=== PATIENT | female | born 1970 | race Caucasian/White ===

== ENCOUNTER 2020-08-16 21:58 | Emergency (ER) | payer SELFPAY ==
--- NOTE | 2020-08-16 22:50 | ER Document Report ---
ED Medical Screen (RME) - General Chief Complaint: Toothache Stated Complaint: TOOTH PAIN AND FACE PAIN Time Seen by Provider: 08/16/20 22:45 Primary Care Provider: TRISTAN CONNER FNP-C [Primary Care Provider] - Follow up as needed Mode of Arrival: Ambulatory Information source: Patient Notes: 50-year-old female presented ED for dental pain to the right posterior lower gum and tooth. She states she had minimal pain on Monday and then it progressed throughout the day became much worse by Monday night Monday morning she started with the swelling to the face and gums. She now has pain to both ears and the left side of her face. She states she has been taking everything the medicine that she has nothing has helped and so she is afraid she is going to overdose on her medications. She does have a large abscess in front of the gums. We will be seen by another provider to complete this care. TRAVEL OUTSIDE OF THE [place] IN LAST 30 DAYS: No - Related Data Allergies/Adverse Reactions: No Known Allergies Allergy (Unverified 01/26/15 11:05) Past Medical History - Past Medical History Cardiac Medical History: Denies: Hx Coronary Artery Disease, Hx Heart Attack, Hx Hypertension Pulmonary Medical History: Denies: Hx Asthma, Hx Bronchitis, Hx COPD, Hx Pneumonia Neurological Medical History: Denies: Hx Cerebrovascular Accident, Hx Seizures Musculoskeltal Medical History: Denies Hx Arthritis - Immunizations Hx Diphtheria, Pertussis, Tetanus Vaccination: No Physical Exam - Vital signs Vitals: Temp Pulse Resp BP Pulse Ox 98.2 F 75 17 145/75 H 97 08/16/20 22:05 08/16/20 22:05 08/16/20 22:05 08/16/20 22:05 08/16/20 22:05 Course - Vital Signs Vital signs: Temp Pulse Resp BP Pulse Ox 98.2 F 75 17 145/75 H 97 08/16/20 22:05 08/16/20 22:05 08/16/20 22:05 08/16/20 22:05 08/16/20 22:05 Doctor's Discharge - Discharge Referrals: TRISTAN CONNER FNP-C [Primary Care Provider] - Follow up as needed
[2020-08-16] MEDS ORDERED: LIDOCAINE 1%/EPINEPHRINE INJ 20 ML VIAL INJ ONE (22:53)
[2020-08-16] MEDS ORDERED: PENICILLIN V POTASSIUM 500 MG TABLET PO ONE (22:53)
[2020-08-16] MEDS ORDERED: HYDROCODONE/ACETAMINOPHEN 5-325 MG (6 TAB/ER DISP) PO PRN (22:54)
[2020-08-16] MEDS ORDERED: BUPIVACAINE HCL 0.75% INJ/PF (7.5 MG/1 ML) 10 ML SDV INJ ONE (22:55)
--- NOTE | 2020-08-16 23:22 | ER Document Report ---
ED General - General Chief Complaint: Toothache Stated Complaint: TOOTH PAIN AND FACE PAIN Time Seen by Provider: 08/16/20 22:45 Primary Care Provider: TRISTAN CONNER FNP-C [Primary Care Provider] - Follow up as needed Mode of Arrival: Ambulatory Notes: Patient is a 50-year-old female with no reported past medical history presents to the emergency department with a chief complaint of dental pain and gum swelling and facial swelling. She states the dental pain began on Monday night and has gradually progressed. States she now has a swollen tender area to the lateral gumline around the same area of the tender tooth. States that she plans to see the dentist tomorrow but can no longer tolerate the discomfort given the new onset swelling that began today outside the jawline. States the pain radiates to both ears and to the face. Worse with chewing or oral intake. Denies any difficulty with tongue or w throat swelling or inability to swallow secretions or trouble breathing. TRAVEL OUTSIDE OF THE [place] IN LAST 30 DAYS: No - Related Data Allergies/Adverse Reactions: No Known Allergies Allergy (Unverified 01/26/15 11:05) Past Medical History - General Information source: Patient - Social History Smoking Status: Unknown if Ever Smoked Family History: Reviewed & Not Pertinent - Past Medical History Cardiac Medical History: Denies: Hx Coronary Artery Disease, Hx Heart Attack, Hx Hypertension Pulmonary Medical History: Denies: Hx Asthma, Hx Bronchitis, Hx COPD, Hx Pneumonia Neurological Medical History: Denies: Hx Cerebrovascular Accident, Hx Seizures Musculoskeletal Medical History: Denies Hx Arthritis - Immunizations Hx Diphtheria, Pertussis, Tetanus Vaccination: No Review of Systems - Review of Systems Constitutional: denies: Fever EENT: denies: Nose congestion Cardiovascular: denies: Orthopnea Respiratory: denies: Sputum Gastrointestinal: denies: Vomiting, Poor fluid intake Genitourinary: denies: Pain Female Genitourinary: denies: Post menopausal Musculoskeletal: denies: Muscle pain Skin: denies: Lesions Hematologic/Lymphatic: denies: Easy bleeding Neurological/Psychological: denies: Gait changes Physical Exam - Vital signs Vitals: Temp Pulse Resp BP Pulse Ox 98.2 F 75 17 145/75 H 97 08/16/20 22:05 08/16/20 22:05 08/16/20 22:05 08/16/20 22:05 08/16/20 22:05 - General General appearance: Appears well, Alert In distress: None - HEENT Head: Normocephalic, Atraumatic Eyes: Normal Conjunctiva: Normal Ears: Normal External canal: Normal Tympanic membrane: Normal Nasal: Normal Mouth/Lips: Other - Mild gingival abscess to the lateral mandibular gumline with tenderness to palpation. The adjacent teeth are tender to percussion. Patent airway. Handling secretions well. No sublingual or submental swelling. No trismus. No drainage from the site of abscess formation. Neck: Normal, Supple - Respiratory Respiratory status: No respiratory distress Chest status: Nontender Breath sounds: Normal Chest palpation: Normal - Cardiovascular Rhythm: Regular Heart sounds: Normal auscultation - Neurological Neuro grossly intact: Yes Cognition: Normal Orientation: AAOx4 - Psychological Associated symptoms: Normal affect, Normal mood - Skin Skin Temperature: Warm Skin Moisture: Dry Skin Color: Normal Course - Re-evaluation Re-evalutation: 08/16/20 23:43 Patient tolerated I&D well. After dental block inferior alveolar block was successful. Patient tolerated I&D. Gauze packing was placed over the site of I&D. Patient was given her first dose of Pen-Vee K here. Sent home with a short course of Westhoff to go pack. We will continue Pen-Vee K. Irrigated with peroxide here status post. Will prescribe Peridex to continue regular mouth washings. She will call her dentist first thing tomorrow morning. Discussed with her and her daughter at length the importance of outpatient follow-up and advised they return here any ER immediately with any new, persistent or worsening symptoms. They verbalized understood and agreed. - Vital Signs Vital signs: Temp Pulse Resp BP Pulse Ox 98.2 F 75 17 145/75 H 97 08/16/20 22:05 08/16/20 22:05 08/16/20 22:05 08/16/20 22:05 08/16/20 22:05 Procedures - Incision and Drainage Left Lower Time completed: 23:43 - Left lower gingival Type: Simple Anesthetic type: 1% Lidocaine w/epi, 0.5% Bupivacaine mL's of anesthetic: 3 Blade size: 11 I&D procedure: Shurclens applied Incision Method: Incision made by scalpel Amount/type of drainage: Scant purulent bloody Notes: 08/16/20 23:43 Patient tolerated well Discharge - Discharge Clinical Impression: Dental abscess Condition: Stable Disposition: HOME, SELF-CARE Instructions: Toothache (OM), Oral Narcotic Medication (OM), Penicillin V K ([facility]) Additional Instructions: Please call your dentist first thing tomorrow morning. Please return here or any ER immediately with any new, persistent or worsening symptoms. Prescriptions: Penicillin V Potassium [Penicillin Vk 500 mg Tablet] 500 mg PO BID #20 tablet Chlorhexidine Gluconate [Peridex] 15 ml MM Q6 #400 ml Referrals: TRISTAN CONNER FNP-C [Primary Care Provider] - Follow up as needed
[2020-08-17 00:11] VITALS: BP 96/63
== END 2020-08-17 00:11 | disposition home or self-care (01) ==
LOC: ER 21:58
PROC: 0C96XZZ Drainage of Lower Gingiva, External Approach (ICD-10-PCS; principal; 2020-08-16)
DX: K04.7 Periapical abscess without sinus (principal); K08.89 Other specified disorders of teeth and supporting structures; R51.9 Headache, unspecified; R22.0 Localized swelling, mass and lump, head
CPT/HCPCS: 99284; 41800; J3490 ×2